=== PATIENT | female | born 1980 | race Caucasian/White ===

== ENCOUNTER → 2017-05-02 | Outpatient (CLI) | payer OTHER ==
--- NOTE | 2017-05-02 17:15 | US ---
EXAMINATION TYPE: US pelvic complete DATE OF EXAM: 05/02/2017 COMPARISON: None CLINICAL HISTORY: N93.9 Dysfunctional uterine bleeding. Patient stated has long menstrual cycles x 8 months; C section delivery. TECHNIQUE: Transvaginal (TV) and Transabdominal (TA) to better assess endometrium. Date of LMP: 04/17/2017 EXAM MEASUREMENTS: Uterus: 8.6 x 5.0 x 3.3 cm Endometrial Stripe: 1.1 cm Right Ovary: 2.3 x 2.8 x 1.9 cm Left Ovary: 3.5 x 2.7 x 1.7 cm 1. Uterus: Anteverted; C section scar is noted in SAUL; small Nabothian cysts in CX with largest = 0. 3 x 0.2 x 0.2cm 2. Endometrium: thickness is wnl for Day 16 LMP 3. Right Ovary: multiple follicles with largest as complex cyst = 1.2 x 1.0 x 0.8cm 4. Left Ovary: multiple follicles with largest as involuting complex cyst = 2.0 x 1.6 x 1.7cm 5. Bilateral Adnexa: wnl 6. Posterior cul-de-sac: free fluid in posterior CDS = 4.6 x 2.9 x 1.6cm IMPRESSION: There is mild free fluid in the cul-de-sac. Bilateral ovarian cysts. No solid adnexal mas s. Normal uterus and endometrium.
== END | disposition home or self-care (01) ==
LOC: RADUSWWP 16:23
PROVIDERS: ATTEND Obstetrics & Gynecology
DX: N83.201 Unspecified ovarian cyst, right side (principal); N83.202 Unspecified ovarian cyst, left side; N92.0 Excessive and frequent menstruation with regular cycle
CPT/HCPCS: 76830; 76856; 83001; 83002; 84146; 84443